=== PATIENT | male | born 1955 | race Caucasian/White ===

== ENCOUNTER 2021-06-11 08:31 | Emergency (ER) | payer OTHER, MEDICARE ==
[2021-06-11 08:36] VITALS: BP 160/88; PULSE 60; RESP 18; TEMP 97.6
[2021-06-11] MEDS ORDERED: IPRATROPIUM-ALBUTEROL 3 ML NEB INHALATION STA (08:54)
[2021-06-11] MEDS ORDERED: DEXAMETHASONE SOD PHOSPHATE 10 MG/ML 1 ML VIAL IM STA (08:54)
--- NOTE | 2021-06-11 08:58 | ED ---
General Adult HPI - General Chief complaint: Upper Respiratory Infection Stated complaint: Cough Time Seen by Provider: 06/11/21 08:45 Source: patient, family, RN notes reviewed, old records reviewed Mode of arrival: ambulatory Limitations: no limitations - History of Present Illness Initial comments: 66-year-old male presents with 2 weeks of dry cough. Patient states he's had no fevers. He has been using [id number] Delsym at night for cough relief which he states has improved the cough at night. States that he coughs throughout the day at work. Denies any chest pain, nausea, vomiting or diarrhea. His has been sick with upper respiratory illness as well. He is a half a pack-a-day smoker. He has history of hypertension, no history of COPD. -: week(s) (2) Severity scale (1-10): 0 Consistency: constant Associated Symptoms: cough Treatments Prior to Arrival: other (delsym) - Related Data Previous Rx's Medication Instructions Recorded Albuterol Inhaler [Ventolin Hfa 2 puff INHALATION Q4H PRN #8 gm 06/11/21 Inhaler] methylPREDNISolone [Medrol Dose 4 mg PO DIRECTED #1 packet 06/11/21 Pack] Allergies Allergy/AdvReac Type Severity Reaction Status Date / Time No Known Allergies Allergy Verified 06/11/21 08:36 Review of Systems ROS Statement: Those systems with pertinent positive or pertinent negative responses have been documented in the HPI. ROS Other: All systems not noted in ROS Statement are negative. Past Medical History Past Medical History: Hypertension History of Any Multi-Drug Resistant Organisms: None Reported Past Surgical History: Hernia Repair Past Psychological History: No Psychological Hx Reported Smoking Status: Current every day smoker Past Alcohol Use History: None Reported Past Drug Use History: None Reported General Exam Limitations: no limitations General appearance: alert, in no apparent distress Eye exam: Present: normal appearance. Absent: scleral icterus, conjunctival injection ENT exam: Present: normal exam, normal oropharynx, mucous membranes moist Respiratory exam: Present: wheezes (Inspiratory and expiratory wheezing bilaterally). Absent: respiratory distress, rales, rhonchi, stridor, chest wall tenderness, accessory muscle use Cardiovascular Exam: Present: regular rate, normal heart sounds. Absent: JVD Extremities exam: Present: normal capillary refill. Absent: pedal edema Back exam: Absent: tenderness, CVA tenderness (R), CVA tenderness (L) Neurological exam: Present: alert, oriented X3, normal gait Psychiatric exam: Present: normal affect, normal mood Skin exam: Present: warm, dry, intact, normal color. Absent: cyanosis, diaphoretic, petechiae, pallor Course Vital Signs 06/11/21 06/11/21 06/11/21 08:33 09:46 09:57 Temperature 97.6 F Pulse Rate 60 60 60 Respiratory 18 Rate Blood Pressure 160/88 O2 Sat by Pulse 96 Oximetry Medical Decision Making - Medical Decision Making 66-year-old male presents with 2 weeks of dry cough. Denies any chest pain, fevers, nausea, vomiting or diarrhea. His has been sick with upper respiratory illness as well. He is a half a pack-a-day smoker. Chest x-ray shows increased opacity at the periphery no evidence of effusion or focal consolidation. Patient has had symptoms of dry cough for 2 weeks, no fevers. There is no pedal edema. He denies any shortness of breath or chest pain. Oxygen saturation 96% on room air. Patient is a half a pack a day smoker. This cough is likely COPD vs viral illness. He was given albuterol treatment and steroids in the ER. He will be prescribed Medrol Dosepak and albuterol inhaler directed to follow up with his primary care doctor return to emergency with a new or worsening symptoms. Patient is agreeable to this plan of care. Case discussed with Dr. Cox Disposition Clinical Impression: Cough, Wheezing, Acute upper respiratory infection Disposition: HOME SELF-CARE Condition: Good Instructions (If sedation given, give patient instructions): Upper Respiratory Infection (ED) Additional Instructions: Take the steroids as prescribed and use the inhaler every 4 hours, 2 puffs as needed for cough, shortness of breath or wheezing. Follow-up with the primary care doctor next week. Return to the emergency room with any new or concerning symptoms. Prescriptions: methylPREDNISolone [Medrol Dose Pack] 4 mg PO DIRECTED #1 packet Albuterol Inhaler [Ventolin Hfa Inhaler] 2 puff INHALATION Q4H PRN #8 gm PRN Reason: Dyspnea Is patient prescribed a controlled substance at d/c from ED?: No Referrals: Toñito Gabriel DO [Primary Care Provider] - 1-2 days Time of Disposition: 10:11
--- NOTE | 2021-06-11 09:19 | XR ---
EXAMINATION TYPE: XR chest 2V DATE OF EXAM: 06/11/2021 COMPARISON: NONE HISTORY: Cough for a few weeks. TECHNIQUE: Frontal and lateral views of the chest are obtained. FINDINGS: Faint bilateral areas of increased opacity in the periphery thought present. No pleural ef fusion or pneumothorax seen bilaterally. The cardiac silhouette size is within normal limits. The osseous structures are intact. IMPRESSION: Possible faint bilateral peripheral increased opacities, correlate clinically to exclude covid-19 infection.
== END 2021-06-11 10:19 | disposition home or self-care (01) ==
LOC: EC 08:31
DX: J06.9 Acute upper respiratory infection, unspecified (principal); I10 Essential (primary) hypertension; F17.210 Nicotine dependence, cigarettes, uncomplicated
CPT/HCPCS: 94640; 71046; 99283; 96372; J1100

== ENCOUNTER → 2021-06-21 | Outpatient (CLI) | payer OTHER, MEDICARE ==
--- NOTE | 2021-06-21 10:52 | XR ---
EXAMINATION TYPE: XR chest 2V DATE OF EXAM: 06/21/2021 COMPARISON: 06/11/2021 HISTORY: 66-year-old male J18.9, cough TECHNIQUE: Frontal and lateral views FINDINGS: The heart is upper limits of normal in size. Aorta within normal limits. Mild central peribronchial c uffing. Hyperinflation. Right infrahilar opacity has improved. Some strandy left basilar atelectasis remains. No consolidation or pleural effusion. IMPRESSION: COPD. Aeration appears to have improved. There is some strandy left basilar atelectasis now noted.
== END | disposition home or self-care (01) ==
LOC: RADXRMAIN 09:33
PROVIDERS: ATTEND Family Medicine
DX: J44.9 Chronic obstructive pulmonary disease, unspecified (principal); J98.11 Atelectasis
CPT/HCPCS: 71046